=== PATIENT | female | born 1975 | race Caucasian/White ===

== ENCOUNTER → 2017-02-19 | Outpatient (CLI) | payer BC ==
[~2017-02-19] MED LIST: LANS30CA12 PO; LANS30CA63; META1TAB22 PO; OXYC-609 PO; ROPI1TAB29 PO
== END | disposition home or self-care (01) ==
LOC: MERGE 13:17 → C.LABSPEC 13:17
PROVIDERS: ATTEND Family Medicine
DX: M54.9 Dorsalgia, unspecified (principal); R30.0 Dysuria

== ENCOUNTER → 2017-09-15 | Outpatient (CLI) | payer BC ==
[~2017-09-15] MED LIST changes: +GADAVIST IV PRN
--- NOTE | 2017-09-15 14:28 | DIAGNOSTIC IMAGING REPORT ---
CERVICAL SPINE COMBO CLINICAL HISTORY: 42 years-old Female presenting with G95.9 Cervical [id number], follow-up postsurgical, clinical concern for disc herniation. TECHNIQUE: Multisequence, multiplanar MR imaging of the cervical spine was performed before and after the administration of intravenous contrast. IV contrast: 9 mL of Gadavist. COMPARISON: None. FINDINGS: Localizer images: Unremarkable. Straightening of normal cervical lordosis. Anterior cervical discectomy and fusion of C6-7. Regional susceptibility artifact limits evaluation of the vertebral bodies at these levels. No prevertebral inflammatory change. Nonoperative vertebral bodies maintain normal height, alignment, and bone marrow signal intensity. Intervertebral disc desiccation noted at C2-3. Multilevel degenerative changes detailed below: C2-3: No significant neural foraminal or spinal canal narrowing. C3-4: Minimal right uncovertebral hypertrophy without significant neural foraminal or spinal canal narrowing. C4-5: Disc osteophyte complex and right greater than left uncovertebral hypertrophy results in mild right neural foraminal narrowing. No significant spinal canal narrowing. C5-6: Disc osteophyte complex and right greater than left uncovertebral hypertrophy result in moderate right and mild left neural foraminal narrowing. There is also eccentric right anterolateral effacement of the thecal sac and right lateral recess. Mass effect on the anterior branch of the exiting right C6 nerve root suspected. C6-7: Left uncovertebral hypertrophy results in mild left neural foraminal narrowing. No spinal canal narrowing. C7-T1: Disc osteophyte complex and bilateral uncovertebral hypertrophy result in mild right and moderate left neural foraminal narrowing. Effacement of the left lateral recess without significant result. Cervical spinal cord maintains normal morphology and signal intensity. Craniocervical junction normal. No paraspinal edema. No epidural collection. No abnormal enhancement on postcontrast imaging. IMPRESSION: 1. Postsurgical changes of anterior discectomy and fusion of C6-7. 2. Multilevel degenerative changes with varying degrees of neural foraminal narrowing secondary to disc osteophyte complexes and uncovertebral hypertrophy. This is most significant from C4-5 through C7-T1 as detailed above. Furthermore, degenerative change at C5-6 may result in mass effect on the anterior branch of the exiting right C6 nerve root. Electronically signed by: Carlos Cotter M.D. 09/15/2017 2:27 PM Dictated Date/Time: 09/15/2017 2:19 PM
== END | disposition home or self-care (01) ==
LOC: C.MRI 13:22 → MERGE 13:30
PROVIDERS: ATTEND Psychiatry & Neurology Neurology
DX: G95.9 Disease of spinal cord, unspecified (principal)

== ENCOUNTER → 2017-09-22 | Outpatient (CLI) | payer BC ==
[~2017-09-22] MED LIST changes: -GADAVIST IV PRN
--- NOTE | 2017-09-22 12:14 | DIAGNOSTIC IMAGING REPORT ---
MRI OF THE LUMBAR SPINE WITHOUT CONTRAST CLINICAL HISTORY: Lower extremity numbness. Lumbar radiculopathy. Stenosis. COMPARISON STUDY: No previous studies for comparison. TECHNIQUE: Utilizing a 1.5 Lizzy magnet and dedicated coil, multiplanar, multiecho imaging of the lumbar spine was performed without IV contrast. FINDINGS: For purposes of numbering on this exam, the L5-S1 disc space is assigned to axial image 27 of 40. Alignment of the lumbar spine is anatomic. Vertebral body heights are maintained. There is no suspicious marrow replacement. A 2.2 x 1.4 cm T1 and T2 hyperintense S2 vertebral body lesion is consistent with a hemangioma. There is no intracanalicular mass or fluid collection. Conus terminates at the upper L1 level. A 2.4 cm left ovarian cystic lesion is present. Paravertebral soft tissues are unremarkable. L1-2: The central canal and neural foramen are patent. There is no disc herniation. L2-3: The central canal and neural foramen are patent. L3-4: There is mild facet arthrosis. There is minimal disc bulge. Central canal is patent. Neural foramen are patent. L4-5: There is mild facet arthrosis and minimal disc bulge. Central canal and neural foramen are patent. L5-S1: There is a tiny central disc protrusion with minimal inferior subligamentous migration. Central canal is patent. There is mild right neural foraminal stenosis. IMPRESSION: 1. Mild multilevel degenerative disc disease and facet arthrosis of the lumbar spine. No significant central canal stenosis. Tiny central disc protrusion at L5-S1. Mild right neural foraminal stenosis at L5-S1. 2. 2.4 cm cystic left ovarian lesion that likely reflects a dominant follicle or cyst. A follow-up pelvic ultrasound in 6 weeks to ensure resolution is recommended. Electronically signed by: Evan Parker M.D. 09/22/2017 12:13 PM Dictated Date/Time: 09/22/2017 12:03 PM
== END | disposition home or self-care (01) ==
LOC: C.MRI 10:58
PROVIDERS: ATTEND Psychiatry & Neurology Neurology
DX: R20.0 Anesthesia of skin (principal); M54.16 Radiculopathy, lumbar region; M48.061 Spinal stenosis, lumbar region without neurogenic claudication